=== PATIENT | female | born 1980 | race Caucasian/White ===

== ENCOUNTER 2016-06-30 07:45 | Emergency (ER) | payer OTHER ==
--- NOTE | ~2016-06-30 | CT2 ---
[facility] A Service of [facility] RADIOLOGY TEXT RESULTS PATIENT: ROMAN ABURTO LOCATION: [facility] : 76 UNIT #: [id number] AGE: [address]: Dennise Middleton SEX: F ORDER DR: [id number] [facility] [place]. [place], [place] [address] [id number] MR#: [id number] #: [id number] NAME: ROMAN ABURTO : 1980 SEX: F STUDY DATE/TIME: 06/30/2016 8:35 UNIT: [facility] ROOM: STUDY DESCRIPTION: CT Abd and Pelv W Cont Attending Physician: Dennise Middleton Pa-C Ordering Physician: Dennise Middleton Pa-C Primary Care Physician: [facility] MEDICAL IMAGING REPORT This report is preliminary unless electronic signature is present EXAM CT of the abdomen and pelvis with contrast. INDICATION 35-year-old female with a history of nausea, vomiting, diarrhea and abdominal pain this morning. TECHNIQUE CT of the abdomen and pelvis performed following the administration of oral and IV contrast. Coronal and sagittal reformatted images were obtained. This CT exam was performed with one or more of the following radiation dose reduction techniques: automatic exposure control, adjustment of mA and/or kV according to patient size, and iterative reconstruction. COMPARISON STUDIES No comparisons are available. FINDINGS The lung bases are clear. There is periportal edema. No intrahepatic biliary ductal dilatation. There is a small amount of pericholecystic fluid between the liver and the gallbladder. The gallbladder is otherwise unremarkable. No radiopaque gallstone. The common duct is nondilated. The spleen is unremarkable. The kidneys are unremarkable. The adrenal glands are unremarkable. The pancreas is unremarkable. PELVIS: IUD. Appendix nonvisualized but there are no secondary signs of appendicitis. No free fluid. IUD. The bone windows are unremarkable. IMPRESSION 1. Periportal edema is noted in the liver and also in the region of the melissa hepatis. The liver parenchyma itself is unremarkable. There [facility] A Service of [facility] RADIOLOGY TEXT RESULTS PATIENT: ROMAN ABURTO [id number] 76 UNIT #: [id number] AGE: [address]: Dennise Middleton SEX: F ORDER DR: are no dilated intrahepatic or extrahepatic bile ducts. The periportal edema is nonspecific but can be seen with acute hepatitis. Please correlate clinically with lab values. 2. There is a very small amount of pericholecystic fluid between the liver and gallbladder which is also nonspecific. The gallbladder wall is not thickened and there are no radiopaque gallstones and there is no inflammatory change about the gallbladder. 3. The appendix is nonvisualized but there are no secondary signs of appendicitis. 4. Additional findings as described. Dictated by... Praveen Cochran M.D. THIS IS AN ELECTRONICALLY VERIFIED REPORT Praveen Cochran M.D. at 06/30/2016 4:55 PM JESUS/lindsay TD: 06/30/2016 10:11 JOB #: [id number] MEDICAL IMAGING REPORT COPY
[2016-06-30 07:25] LABS: BASOPHIL% 0.5 % (0-2.5); EOSINOPHIL% 0.2 % (0.0-7.0); HEMATOCRIT 39.2 % (35.0-45.0); HEMOGLOBIN 13.2 gm/dL (12.0-16.0); LYMPHOCYTE# 0.2 X10e3 (1.0-3.5); LYMPHOCYTE% 6.9 % (17.0-45.0); MEAN CELL VOLUME 87.8 FL (83-96); MEAN CORPUSCULAR HEMOGLOBIN 29.5 PG (28-34); MEAN CORPUSCULAR HGB CONC 33.6 g/dL (30-36); MEAN PLATELET VOLUME 8.2 FL (6.5-11.5); MONOCYTE% 0.8 % (3.0-12.0); NEUTROPHIL# 2.2 X10e3 (1.5-7.1); NEUTROPHIL% 91.6 % (40-75); PLATELET COUNT 168 X10e3 (140-420); RED BLOOD COUNT 4.47 X10e (3.90-5.30); RED CELL DISTRIBUTION WIDTH 13.5 % (11.0-15.5); WHITE BLOOD COUNT 2.4 X10e3 (4.0-10.5)
[2016-06-30 07:28] LABS: DIFF IND YES
[2016-06-30 07:38] LABS: URINE SOURCE CLEAN CATCH
[2016-06-30 07:43] LABS: URINE APPEARANCE CLEAR; URINE BILIRUBIN NEG (NEG); URINE BLOOD NEG (NEG); URINE COLOR YELLOW; URINE GLUCOSE NEG (NEG); URINE KETONE NEG (NEG); URINE LEUKOCYTE ESTERASE TRACE (NEG); URINE NITRATE NEG (NEG); URINE PROTEIN NEG (NEG)
[2016-06-30 07:44] LABS: URBCS1 AUWI 0-2 /[HPF] (0-2); URINE BACTERIA AUWI NEG (NEGATIVE); URINE SQUAMOUS EPITHELIAL CELL OCC /[HPF]; UWBCS1 AUWI 0-2 (0-5)
[2016-06-30 07:45] LABS: CULTURE INDICATED? NO
[~2016-06-30 07:45] MED LIST: AMOXICILLIN PO; IBUPROFEN PO; PHENERGAN25 M1 PO; VICODIN 5/1 TAB 5/50 PO
[2016-06-30 07:46] LABS: ALBUMIN SERUM 3.5 g/dL (3.5-5.0); ALKALINE PHOSPHATASE 107 U/L (32-92); ALT (SGPT) 48 U/L (10-40); AMYLASE 19 U/L (0-46); AST (SGOT) 76 U/L (10-42); BILIRUBIN, DIRECT 0.4 mg/dL (0.0-0.2); BILIRUBIN,INDIRECT 0.8 mg/dL (0.0-0.9); BILIRUBIN,TOTAL 1.2 mg/dL (0.2-2.0); BLOOD UREA NITROGEN 10 mg/dL (9-23); BUN/CREATININE RATIO 8.33; CALCIUM SERUM 8.7 mg/dL (8.4-10.2); CARBON DIOXIDE 21 mmol/L (22-31); CHLORIDE 104 mmol/L (100-111); CREATININE SERUM 1.2 mg/dL (0.6-1.4); GLOM FILT RATE Estimated 53.7 mL/min (>60); GLUCOSE FASTING 100 mg/dL (70-110); LIPASE 16 U/L (22-51); PROTEIN TOTAL SERUM 6.3 g/dL (6.0-8.3); SODIUM 137 mmol/L (135-145)
[2016-06-30 07:48] LABS: ALCOHOL BLOOD <5 mg/dL (0); POTASSIUM 2.8 mmol/L (3.5-5.1)
[2016-06-30 07:54] LABS: AMPHETAMINE NEG (NEG); BARBITURATES NEG (NEG); BENZODIAZEPINES NEG (NEG); COCAINE POS (NEG); MARIJUANA POS (NEG); OPIATES POS (NEG); TRICYCLIC ANTIDEPRESSANTS NEG (NEG); U METHADONE NEG (NEG)
[2016-06-30 07:55] LABS: PLATELET ESTIMATE NORMAL (NORMAL); VACUOLIZATION SL
[2016-07-02 13:02] LABS: CHLAMYDIA TRACH Detected (Not Detected); N GONOR Not Detected (Not Detected)
== END 2016-06-30 12:04 | disposition home or self-care (01) ==
LOC: CED 07:45
PROVIDERS: Physician Assistant Medical
DX: E87.6 Hypokalemia (principal); R74.8 Abnormal levels of other serum enzymes; J45.909 Unspecified asthma, uncomplicated; N83.201 Unspecified ovarian cyst, right side; F17.210 Nicotine dependence, cigarettes, uncomplicated; Z91.040 Latex allergy status
CPT/HCPCS: 74177; 80048; 80076; 80307; 81003; 82150; 83690; 84703; 85025; 87491; 87591; 87808; 87905; 96361; 96372; 96374; 99284; G0480; J0696; J2405; Q9967

== ENCOUNTER 2016-09-23 06:58 | Emergency (ER) | payer OTHER | END 2016-09-23 07:52 | disposition home or self-care (01) | LOC: CED 06:58 | DX: S51.811D Laceration without foreign body of right forearm, subsequent encounter (principal); F17.200 Nicotine dependence, unspecified, uncomplicated | CPT/HCPCS: 99281 ==